=== PATIENT | female | born 2000 | race Caucasian/White ===

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

== ENCOUNTER 2022-10-23 10:43 | Emergency (ER) | payer OTHER, SELFPAY ==
[2022-10-23 10:44] VITALS: BP 123/79; PULSE 116; RESP 17; TEMP 36.6; O2SAT 100; BMI 24.1
[2022-10-23 11:30] VITALS: BP 113/71; PULSE 93; O2SAT 100
[2022-10-23 11:30] LABS: Basophils % 0.2 % (0.1-2.0); Eosinophils # 0.2 K/mm3 (0.0-0.4); Eosinophils % 1.5 % (0.1-12.0); Hematocrit 34.9 % (37.0-47.0); Hemoglobin 11.5 g/dL (12.2-16.2); Lymphocytes # 1.9 K/mm3 (0.7-4.5); Lymphocytes % 16.2 % (10-50); Mean Corpuscular HGB Conc 32.9 g/dL (31.8-35.4); Mean Corpuscular Hemoglobin 25.7 pg (27.0-31.2); Mean Platelet Volume 8.5 fl (7.4-10.4); Monocytes # 0.5 K/mm3 (0.1-1.0); Monocytes % 4.2 % (1.7-9.3); Neutrophils # 8.8 K/mm3 (1.8-7.8); Neutrophils % 77.8 % (37.0-80.0); Platelet Count 299 K/mm3 (142-424); Red Blood Count 4.47 M/mm3 (4.20-5.40); Red Cell Distribution Width 17.8 % (11.5-17.5); White Blood Count 11.3 K/mm3 (4.8-10.8)
[2022-10-23 11:31] LABS: Chloride 99 mmol/L (98-107); Potassium 4.5 mmoL/L (3.5-5.1); Sodium 142 mmol/L (136-145)
[2022-10-23 11:34] LABS: Anion Gap 18.5 mEq/L (5-15); Blood Urea Nitrogen 7 mg/dl (7-17); Carbon Dioxide 29 mmol/L (22.0-30.0); Creatinine Clearance Estimated 138 mL/min (50-200); Estimated Glomerular Filt Rate 124 ml/min (>60); GFR (African American) 150 ML/MIN (>60)
[2022-10-23 11:35] LABS: Calcium 8.9 mg/dl (8.4-10.2); Glucose 87 mg/dl (74-100)
--- NOTE | 2022-10-23 11:40 | [facility].EDGENADL ---
Discharge Plan Disposition Patient Disposition: Home, Self-Care Condition: Good Prescriptions Prescriptions: New clindamycin HCl 300 mg capsule 300 mg PO BID 10 Days Qty: 20 0RF No Action sertraline 50 mg tablet 50 mg PO DAILY Label Comments: TAKE 1 TABLET BY MOUTH EVERY DAY Referrals Follow up/Referrals: Prosper Hansen [Primary Care Provider] - See instructions Activity Restrictions/Add. Instructions Additional Instructions/Restrictions: You were evaluated in the emergency department today. 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 Follow-up with your primary care provider over the next 3 days for reassessment. Apply warm compresses to the area. Do not submerge it under any water. Ice as needed for pain relief. Take Tylenol at home as needed for pain. Return to the emergency department for new or worsening symptoms. Clinical Impressions Clinical Impression: Mastitis, left, acute Instructions Patient Instructions: DI for Mastitis, DI for Skin Abscess Discharge ED Provider: Lucia Genao General Adult HPI General Chief complaint: Skin/Abscess/Foreign Body Stated complaint: LT breast pain w/ black spot, Time Seen by Provider: 10/23/22 10:55 Mode of Arrival: Ambulatory Limitations: No Limitations Description of Symptoms (Recalled from ER Triage Doc. by RN): PT WITH PAINFUL, RED, SWOLLEN LEFT BREAST. STARTED ON TUESDAY. PT IS . 3 WEEKS POST- History of Present Illness HPI narrative: This patient is a 22-year-old female who denies significant past medical history presenting to the emergency department for evaluation with concern for a painful left swollen breast. She has redness, warmth, and significant tenderness to her left breast. She is currently breast-feeding her 3-week-old baby at home, however she has not been using the left breast secondary to pain. She denies any fevers, chills, chest pain, shortness of breath, nausea, vomiting, abdominal pain, or other systemic symptoms. Related Data Home Medications Medication Instructions Recorded Confirmed sertraline 50 mg tablet 50 mg PO DAILY Mood 10/23/22 10/23/22 Previous Rx's Medication Instructions Recorded clindamycin HCl 300 mg capsule 300 mg PO BID 10 days #20 caps 10/23/22 Allergies Allergy/AdvReac Type Severity Reaction Status Date / Time ibuprofen [IBUPROFEN] Allergy Severe NA-NAUSEA/V Verified 10/23/22 11:29 OMITING PFSH PFS Disclaimer: The information contained in this section may have been updated after the patient was seen, as this information can be updated by other users. Social History Smoking Status: Never smoker alcohol intake: never current occupational status: employed Travel in the last 8 weeks: None ROS Obtained: Yes All systems reviewed & no additional complaints except as documented 14 point review of systems obtained and negative except as mentioned in HPI. Physical Exam General General appearance: alert and in no apparent distress Head Head exam: atraumatic and normocephalic Eye Eye exam: Present normal appearance, PERRL and EOMI ENT ENT exam: Present normal exam and normal oropharynx Neck Neck exam: Present normal inspection, full ROM and trachea midline Expanded Chest Exam Breast: left: erythema, swelling and tenderness Female Torso: 1. Comment: Area of fluctuance on the inferolateral left breast from which I can express purulent material. Respiratory Respiratory exam: Present normal lung sounds bilaterally; Absent respiratory distress or wheezes Cardiovascular Cardiovascular exam: Present regular rate and normal rhythm Abdominal Exam Abdominal exam: Present soft; Absent distention, tenderness or guarding Extremities Exam Extremities exam: Present normal inspection Back Exam Back exam: Present normal inspection and full ROM Laura
[2022-10-23 12:39] VITALS: BP 118/65; PULSE 89; RESP 17; TEMP 36.8; O2SAT 100
== END 2022-10-23 12:40 | disposition home or self-care (01) ==
PROVIDERS: Emergency Provider Emergency Medicine; PCP Internal Medicine
DX: O91.03 Infection of nipple associated with lactation (principal)
CPT/HCPCS: 76642; 80048; 85025; 96374; 96375; 99284; J2405